=== PATIENT | male | born 1990 | race Asian ===

== ENCOUNTER 2021-06-17 06:20 | Emergency (ER) | payer SELFPAY ==
--- NOTE | 2021-06-17 06:31 | Event Note ---
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 Dates he jammed it on a pallet. Now with 5/10 pain and aching throbbing. Range of motion remains intact there is no drainage erythema or gross deformity. Patient is right-handed. This initial assessment/diagnostic orders/clinical plan/treatment(s) is/are subject to change based on patients health status, clinical progression and re- assessment by fellow clinical providers in the ED. Further treatment and workup at subsequent clinical providers discretion. Patient/guardian urged not to elope from the ED as their condition may be serious if not clinically assessed and managed. Initial orders include: xray hand right
--- NOTE | 2021-06-17 06:53 | XRay Report ---
EXAMINATION: XR hand 3+V RT, INDICATION / CLINICAL INFORMATION: 5 th digit pain swelling COMPARISON: None available. FINDINGS: BONES / JOINT(S): There is an acute avulsion fracture of the dorsal base of the right small finger di stal phalanx. Mild volar subluxation of the distal phalanx relative to the middle phalanx. No additio nal fracture identified SOFT TISSUES: Soft tissue swelling about the right small finger DIP joint. ADDITIONAL FINDINGS: None. IMPRESSION: Acute avulsion fracture of the dorsal base of the right small finger distal phalanx with mild volar s ubluxation. Signer Name: Kevin Galaviz MD Signed: 06/17/2021 6:49 AM Workstation Name: [id number]
--- NOTE | 2021-06-17 06:56 | Emergency Department Report ---
HPI - General Time Seen by Provider: 06/17/21 06:39 - HPI HPI: Due to the Covid pandemic and our limited bed availability at this time, the patient was seen in an area of the emergency department that is not necessarily private. I asked the patient if they would like to wait to find a private room/area to do the history and physical, but I was given permission by the patient to proceed. We will attempt to find a more private area for further evaluation, treatment, and discussion of results if necessary. This is a 30-year-old -Citizen Of [place] male, who is right-hand dominant, who presents to the emergency department with a 2-week history of right fifth finger (pinky) pain and some swelling. The patient says that he uses his hands a lot at work and there was an instance in which he "jammed" the finger, but does not know exactly how it occurred. He has had the symptoms since that time. The pain is currently 4 out of 10 in intensity and throbbing in nature. No known alleviating factors, but the pain worsens somewhat with movement and palpation. He has not taken anything for his symptoms prior to presentation today. ED Past Medical Hx - Medications Home Medications: Home Medications Medication Instructions Recorded Confirmed Last Taken Type Ibuprofen [Motrin 800 MG tab] 800 mg PO Q8HR PRN #20 tablet 06/17/21 Unknown Rx ED Review of Systems ROS: Stated complaint: PINKY FINGER POSS BROKEN Other details as noted in HPI Comment: All other systems reviewed and negative Constitutional: denies: chills, fever Respiratory: denies: cough, shortness of breath Cardiovascular: denies: chest pain, palpitations Gastrointestinal: denies: abdominal pain, vomiting Musculoskeletal: joint swelling, arthralgia Skin: denies: rash, change in color Neurological: denies: numbness, paresthesias Physical Exam - Physical Exam Physical Exam: GENERAL: The patient is well-developed well-nourished. HENT: Normocephalic. Atraumatic. Patient has moist mucous membranes. EYES: Extraocular motions are intact. NECK: Supple. Trachea is midline. SKIN: Skin is warm and dry. There is some mild dorsal swelling to the DIP joint of the right fifth phalanx. No erythema or color change. NEURO: The patient is awake, alert, and oriented. The patient is cooperative. The patient has no focal neurologic deficits. Normal speech. MUSCULOSKELETAL: There is some tenderness to palpation to the distal portion of the right fifth phalanx. Capillary refill less than 2 seconds. There is no l imitation range of motion. ED Medical Decision Making - Radiology Data Radiology results: image reviewed interpreted by me: X-ray of the right hand shows a small avulsion fracture at the DIP joint of the right fifth phalanx. No dislocation. - Medical Decision Making This patient presents with a 2-week history of right pinky finger pain after jamming it while at work. He has some swelling to the dorsal DIP of that fifth right phalanx. Neurovascularly intact. X-ray shows a small avulsion fracture. The patient was placed in a finger splint and remains neurovascularly intact after splint placement. He has been given outpatient orthopedic follow-up. Critical Care Time: No Critical care attestation.: If time is entered above; I have spent that time in minutes in the direct care of this critically ill patient, excluding procedure time. ED Disposition Clinical Impression: Avulsion fracture of distal phalanx of finger Qualifiers: Encounter type: initial encounter Fracture type: closed Qualified Code(s): S62.639A - Displaced fracture of distal phalanx of unspecified finger, initial encounter for closed fracture Disposition: 01 HOME / SELF CARE / HOMELESS Is pt being admited?: No Condition: Stable Instructions: Finger Fracture, Adult, Cast or Splint Care, Adult Additional Instructions: Remain in the finger splint until follow-up with orthopedist. I am giving you a referral for 2 different local orthopedic groups, Dr. Arredondo, and [facility]. Return to the emergency department with any worsening of your symptoms, new or concerning symptoms not addressed during this current emergency department visit, or with any acute distress. Prescriptions: Ibuprofen [Motrin 800 MG tab] 800 mg PO Q8HR PRN #20 tablet PRN Reason: Pain , Severe (7-10) Referrals: KAVYA ARREDONDO MD [Staff Physician] - 2-3 Days [facility] [Provider Group] - 2-3 Days Time of Disposition: 06:58
[2021-06-17] MEDS: IBUPROFEN 800 MG TAB PO NR ×2 (07:01→07:02)
[2021-06-17 07:27] VITALS: BP 118/72
== END 2021-06-17 07:25 | disposition home or self-care (01) ==
LOC: ED 06:20
DX: S62.636A Displaced fracture of distal phalanx of right little finger, initial encounter for closed fracture (principal); W23.0XXA Caught, crushed, jammed, or pinched between moving objects, initial encounter; Y93.89 Activity, other specified; Y92.89 Other specified places as the place of occurrence of the external cause; Y99.8 Other external cause status
CPT/HCPCS: 99283